=== PATIENT | male | born 1945 | race Caucasian/White ===

== ENCOUNTER 2017-08-24 14:13 | Outpatient (CLI) | payer MEDICARE, OTHER ==
--- NOTE | 2017-08-24 16:49 | ULT ---
EXAM: RENAL ULTRASOUND 08/24/17 HISTORY: Proteinuria. COMPARISON: None. TECHNIQUE: Sagittal and transverse imaging of the kidneys performed. FINDINGS: There is bilateral renal cortical thinning. Bilaterally, no hydronephrosis. Right kidney measures 12. 1 x 5.4 x 6.2 cm. The left kidney measures 12.4 x 6.2 x 6.7 cm. Bladder volume is 65 cubic centimeter s. IMPRESSION: Bilateral renal cortical thinning. No hydronephrosis. POS: [facility]
== END 2017-08-24 14:14 | disposition home or self-care (01) ==
LOC: ULT 14:13
PROVIDERS: ATTEND Internal Medicine Nephrology
DX: R80.9 Proteinuria, unspecified (principal)
CPT/HCPCS: 76770

== ENCOUNTER 2017-10-17 08:20 | Day surgery (SDC) | payer MEDICARE, OTHER ==
[2017-10-16 11:45] VITALS: BMI 32.5
[2017-10-17 09:02] LABS: #Basophils 0.1 thou/uL (0.0-0.2); #Eosinphils 0.2 thou/uL (0.0-0.7); #Lymphocytes 1.5 thou/uL (1.20-3.40); #Monocytes 0.6 thou/uL (0.11-0.59); #Neutrophils 3.8 thou/uL (1.40-6.50); %Basophils 1.5 % (0.0-1.0); %Eosinophils 2.8 % (0.0-10.0); %Lymphocytes 24.7 % (21.0-51.0); %Monocytes 9.5 % (0.0-10.0); %Neutrophils 61.5 % (42.0-75.0); Hemoglobin 13.3 g/dL (14.0-18.0); Mean Corpuscular HGB CONC 32.6 g/dL (32.0-36.0); Mean Corpuscular Hemoglobin 30.7 pg (27.0-31.0); Mean Corpuscular Volume 94.2 fl (80.0-94.0); Mean Platelet Volume 8.3 fL (7.4-10.4); Platelet Count 272 thou/uL (130-400); RBC Distribution Width 12.2 % (11.5-14.5); Red Blood Cell (RBC) Count 4.33 mill/uL (4.70-6.10); White Blood Cell (WBC) Count 6.2 thou/uL (4.8-10.8)
[2017-10-17 09:07] LABS: PTT 23.7 SEC (22.9-36.1); Prothrombin Time 13.4 SEC (12.0-14.7)
[2017-10-17 10:05] VITALS: BP 132/51; TEMP 97.8
--- NOTE | 2017-10-17 13:37 | CT ---
CT GUIDED RENAL BIOPSY: Indications: Proteinuria. Random renal biopsy was requested by technical writer. FINDINGS: Two 2.5 cm length 18 gauge core specimens were obtained through the inferior pole of the left kidney using CT guidance. Adequacy of the specimens were confirmed by Dr. Bejarano at CT. PROCEDURE NOTE: Patient was placed prone on the CT table. Entry site for biopsy into the lower pole of the left kidne y was identified and marked. The overlying skin was prepped and draped in a sterile manner. Local ane sthesia was administered with Lidocaine and bicarb. A 17 gauge needle with trocar in place was introd uced under CT guidance from a posterior approach on the left. The tip of the needle was advanced to t he medial edge of the posterior aspect of the lower pole of the left kidney. Biopsy gun attached and a 2.5 cm length 18 gauge core biopsy sample was obtained through the lower pole of the left kidney. T he specimen was given to Dr. Bejarano and he confirmed adequacy of the specimen. A second biopsy specime n was then obtained through the lower pole from the same position. Post procedure CT showed minimal residual perinephric hematoma. Patient tolerated the procedure well and there no problems or complications. POS: K[facility]
== END 2017-10-17 13:20 | disposition home or self-care (01) ==
LOC: CT 08:20
PROVIDERS: ATTEND Internal Medicine Nephrology
PROC: 0TB13ZX Excision of Left Kidney, Percutaneous Approach, Diagnostic (ICD-10-PCS; principal; 2017-10-17)
PROC: BT22ZZZ Computerized Tomography (CT Scan) of Left Kidney (ICD-10-PCS; 2017-10-17)
DX: I12.9 Hypertensive chronic kidney disease with stage 1 through stage 4 chronic kidney disease, or unspecified chronic kidney disease (principal); N18.3 Chronic kidney disease, stage 3 (moderate); Z79.82 Long term (current) use of aspirin; Z79.899 Other long term (current) drug therapy
CPT/HCPCS: 36415; 50200; 77012; 85025; 85610; 85730; 88305; 88313; 88329; 88346; 88348; 88350

== ENCOUNTER 2018-09-27 15:07 | Outpatient (CLI) | payer MEDICARE, OTHER ==
--- NOTE | 2018-09-27 15:23 | RAD ---
2 VIEWS CHEST: Date: 09/27/18 COMPARISON: 12/05/14. HISTORY: Chronic kidney disease, Stage II. Shortness of breath for a while. FINDINGS: Two views of the chest show a normal sized cardiomediastinal silhouette. Increased interstitial lung markings are present. There appear to be superimposed air space opacities projecting over the right u pper and middle aspect of the thorax. No pleural effusions are seen. IMPRESSION: Possible infiltrates versus pulmonary edema in the right lung. POS: [facility]
== END 2018-09-27 15:08 | disposition home or self-care (01) ==
LOC: BICRAD 15:07
PROVIDERS: ATTEND Internal Medicine Nephrology
DX: N18.2 Chronic kidney disease, stage 2 (mild) (principal)
CPT/HCPCS: 71046